=== PATIENT | female | born 1990 | race Native Hawaiian/Other Pacific Islander ===

== ENCOUNTER 2018-05-28 17:05 | Emergency (ER) | payer SELFPAY ==
--- NOTE | 2018-05-28 18:26 | Emergency Department Report ---
HPI - General Chief Complaint: Medical Clearance Time Seen by Provider: 05/28/18 17:56 - HPI HPI: Patient is a 27-year-old female presents to ED complaining of ear feeling clogged this started this morning. Patient states that she began experiencing facial headaches after that. Patient states that this started while she was at the gym today patient states she was at the gym lifting weights for the first time today. Patient states she was lifting a whole lot but was doing leaves for the first time today. She states she normally bronchitis and does cardio training in the past. She states that when she got here she started to feel a tingling sensation on her face and her hands. Patient states she was recently diagnosed with type pressure by her DIRECTOR OF AUDIOLOGY doctor and he is fully not with the DIRECTOR OF AUDIOLOGY doctor this Saturday. Patient's history is appointment with him. Patient states this mediated. Anxious and she is worried about the results. She denies fevers/chills/nausea vomiting/abdominal pain/dizziness/shortness of breath ED Past Medical Hx - Past Medical History Previous Medical History?: No - Surgical History Past Surgical History?: No - Social History Smoking Status: Never Smoker Substance Use Type: None - Medications Home Medications: Home Medications Medication Instructions Recorded Confirmed Last Taken Type Amoxicillin/K Clav Tab [Augmentin 1 tab PO Q12HR #14 tab 05/28/18 Unknown Rx 875 mg] Ibuprofen [Motrin] 600 mg PO Q8H #30 tablet 05/28/18 Unknown Rx ED Review of Systems ROS: Stated complaint: BLURR VISION/BODY NUMBNESS Other details as noted in HPI Constitutional: denies: chills, fever Eyes: denies: eye pain, eye discharge, vision change ENT: denies: ear pain, throat pain Respiratory: denies: cough, shortness of breath, wheezing Cardiovascular: denies: chest pain, palpitations Endocrine: no symptoms reported Gastrointestinal: denies: abdominal pain, nausea, diarrhea Genitourinary: denies: urgency, dysuria, discharge Musculoskeletal: denies: back pain, joint swelling, arthralgia Skin: denies: rash, lesions Neurological: denies: headache, weakness, paresthesias Psychiatric: denies: anxiety, depression Hematological/Lymphatic: denies: easy bleeding, easy bruising Physical Exam - Physical Exam Vital Signs: Vital Signs 05/28/18 17:11 Temperature 98.7 F Pulse Rate 126 H Respiratory 18 Rate Blood Pressure 150/97 O2 Sat by Pulse 98 Oximetry Physical Exam: GENERAL: Alert and oriented x3, no apparent distress, Normal Gait, atraumatic. HEAD: Head is normocephalic and a-traumatic. EYES: Extra ocular muscles are intact. Pupils are equal, round, and reactive to light and accommodation. EARS: symetrical, atraumatic, non tender, ear canal clear and moderate cerumen, tympanic membrance non inflamed but has fluid behind them. gross auditory nml bilaterally. NOSE: Nose symetrical, Nontender,Nares appeared normal. MOUTH:Mouth is well hydrated and without lesions. Tonsils nonerythematous or swollen, Uvula midline, Tongue not elevated. Mucous membranes are moist. Posterior pharynx clear, no exudate or lesions. Patent airways. NECK: Supple. Non edematous, No carotid bruits. No lymphadenopathy or thyromegaly. LUNGS: Symetrical with respiration, No wheezing, no rales or crackles, CTAB. HEART: S1, S2 present, regular rate and rhythm without murmur, no rubs, no gallops. Non tender to palpation EXTREMITIES/MUSCULOSKELETAL: No cyanosis, clubbing, rash, lesions or edema. Full ROM bilaterally. UE/LE Pulses 2+ bilaterally. NEUROLOGIC: The patient is cooperative with no focal neurologic deficits. Cranial nerves II through XII are grossly intact. Normal speech. Normal sensation in bilateral upper and lower extremities, No loss of sensation, SKIN: Warm and dry, No lesions, No ulceration or induration present. ED Course Vital Signs 05/28/18 17:11 Temperature 98.7 F Pulse Rate 126 H Respiratory 18 Rate Blood Pressure 150/97 O2 Sat by Pulse 98 Oximetry ED Medical Decision Making - Lab Data Result diagrams: 05/28/18 18:28 05/28/18 18:36 - Medical Decision Making 27-year-old female presents with panic attacks/hyperglycemia I discussed labs with the patient. I discussed need to follow up with the primary care physician. I discussed with her to also follow-up with her DIRECTOR OF AUDIOLOGY. I discussed proper fluid, proper food while and before her working out Vital signs are normal patient is in no acute or respiratory distress Critical care attestation.: If time is entered above; I have spent that time in minutes in the direct care of this critically ill patient, excluding procedure time. ED Disposition Clinical Impression: Panic disorder, Hyperglycemia, Sinusitis chronic, frontal Disposition: DC-01 TO HOME OR SELFCARE Is pt being admited?: No Does the pt Need Aspirin: No Condition: Stable Instructions: Panic Disorder (ED), Hyperglycemia, Non-Diabetic (ED), Anxiety ( ED) Additional Instructions: Make sure to follow up with the primary care physician as discussed. Take all your medications as you've been prescribed. Follow-up with the DIRECTOR OF AUDIOLOGY doctor this Saturday as scheduled If you have any worsening symptoms or develop new symptoms please return to ED immediately. Prescriptions: Amoxicillin/K Clav Tab [Augmentin 875 mg] 1 tab PO Q12HR #14 tab Ibuprofen [Motrin] 600 mg PO Q8H #30 tablet Referrals: PRIMARY CAREMD [Primary Care Provider] - 3-5 Days BLU CHARLTON MD [Referring] - 3-[address] [facility] [Outside] - 3-5 Days [facility] [Outside] - 3-5 Days Forms: Work/School Release Form(ED) Time of Disposition: 19:56
[2018-05-28 18:38] LABS: Bilirubin,Urine NEG (Negative); Blood,Urine SM (Negative); Color,Urine Red (Yellow); Protein,Urine <15 mg/dL mg/dL (Negative); RBC,Urine < 1.0 /HPF (0.0-6.0); Urobilinogen,Urine < 2.0 mg/dL (<2.0)
[2018-05-28 18:44] LABS: HCG Qualitative,Urine Negative (Negative)
[2018-05-28 18:46] LABS: Basophils % (Auto) 0.4 % (0.0-1.8); Eosinophils # (Auto) 0.1 K/mm3 (0.0-0.4); Eosinophils % (Auto) 1.2 % (0.0-4.3); Hematocrit 40.3 % (30.3-42.9); Lymphocytes # (Auto) 2.8 K/mm3 (1.2-5.4); Lymphocytes % (Auto) 25.5 % (13.4-35.0); Mean Corpuscular HGB Conc 35 % (30-34); Mean Corpuscular Hemoglobin 29 pg (28-32); Mean Corpuscular Volume 82 fl (79-97); Monocytes % (Auto) 8.9 % (0.0-7.3); Platelet Count 367 K/mm3 (140-440)
[2018-05-28 19:04] LABS: BUN/Creatinine Ratio 15; Blood Urea Nitrogen 9 mg/dL (7-17); Hemolysis Index 7
[2018-05-28 20:16] VITALS: BP 124/85
== END 2018-05-28 20:15 | disposition home or self-care (01) ==
LOC: ED 17:05
DX: J32.1 Chronic frontal sinusitis (principal); F41.0 Panic disorder [episodic paroxysmal anxiety]; R73.9 Hyperglycemia, unspecified; Z88.1 Allergy status to other antibiotic agents
CPT/HCPCS: 36415; 80048; 81001; 81025; 85025; 99283